=== PATIENT | male | born 1970 | race Hispanic/Latino ===

== ENCOUNTER 2021-08-07 08:11 | Emergency (ER) | payer OTHER ==
[~2021-08-07] VITALS: Ht 172.7 cm; Wt 92.5 kg
[2021-08-07] MEDS ORDERED: VASOTEC10 M1 PO (08:31)
[2021-08-07] MEDS ORDERED: TIZANIDINE HCL4 M1 PO (08:31)
[2021-08-07] MEDS ORDERED: ATORVASTATIN CA40 MG PO (08:31)
== END 2021-08-07 08:50 | disposition home or self-care (01) ==
LOC: FSED 08:48
DX: M54.12 Radiculopathy, cervical region (principal); I10 Essential (primary) hypertension; E78.5 Hyperlipidemia, unspecified; M54.9 Dorsalgia, unspecified; G89.29 Other chronic pain
CPT/HCPCS: 99282